=== PATIENT | female | born 1930 | race Hispanic/Latino ===

== ENCOUNTER 2017-05-28 07:02 | Day surgery (SDC) | payer MEDICARE ==
[2017-05-24 08:36] VITALS: BMI 36.5
[2017-05-28] MEDS ORDERED: Phenylephrine 10 mg/ml Inj ONE (07:30)
[2017-05-28] MEDS ORDERED: Nitroglycerin 50mg in D5W 50 MG/250 ML BOTTLE IV ONE (07:31)
[2017-05-28] MEDS ORDERED: Verapamil 2 ML ONE (07:31)
[2017-05-28] MEDS ORDERED: Lidocaine 2% Inj (20ml) ONE (07:32)
[2017-05-28] MEDS ORDERED: Iodixanol 320 MG/ML 100 ML BOTTLE IV ONE (07:33)
[2017-05-28] MEDS ORDERED: Iodixanol 320 MG/ML 200 ML BOTTLE IV ONE (07:33)
[2017-05-28] MEDS ORDERED: Iohexol 350mgl/ml 50 ML ONE (07:33)
[2017-05-28 07:42] LABS: BASO # 0.02 K/mm3 (0.0-2.0); BASO % 0.2 % (0.0-3.0); EOS # 0.2 (0.0-0.7); EOS % 2.2 % (1.5-5.0); GRAN # 6.77 (1.4-6.5); GRAN % 68.7 % (50.0-68.0); HEMOGLOBIN 12.7 g/dL (12.0-16.0); LYMPH # 2.1 (1.2-3.4); LYMPH % 21.7 % (22.0-35.0); MEAN CORPUSCULAR HEMOGLOBIN 31.9 pg (25.0-35.0); MEAN CORPUSCULAR HGB CONC 33.2 g/dl (31.0-37.0); MEAN PLATELET VOLUME 11.1 fl (7.0-11.0); MONO # 0.7 (0.1-0.6); MONO % 7.2 % (1.0-6.0); RBC 3.98 10^6/uL (3.5-6.1); RED CELL DISTRIBUTION WIDTH 13.5 % (11.5-14.5); WHITE BLOOD COUNT 9.9 10^3/ul (4.5-11.0)
[2017-05-28 07:53] LABS: INR 1.05 (0.93-1.08); PARTIAL THROMBOPLASTIN TIME 25.3 Seconds (25.1-36.5); PROTHROMBIN TIME 12.1 SECONDS (9.4-12.5)
[2017-05-28] MEDS ORDERED: Midazolam 2 MG/2 ML VIAL ONE ×3 (07:59→09:32)
[2017-05-28] MEDS ORDERED: Adenosine 90 mg/30mL IV ONE (07:59)
[2017-05-28] MEDS ORDERED: Sodium Chloride 0.9% 1,000 ML IV SCH (10:30)
[2017-05-28 10:51] VITALS: TEMP 97.3
[2017-05-28 13:16] VITALS: RESP 20
[2017-05-28 15:46] VITALS: BP 128/72; PULSE 72; O2SAT 98
--- NOTE | 2017-05-28 16:01 | CARDCATH ---
PROCEDURE DATE: 05/28/2017 INDICATIONS: Ms. Chantel El is an 86 years old female with symptoms of worsening dyspnea on exertion. She was having intermittent episodes of atypical chest pain with history of CAD and stenting. She was therefore brought to the label rewinder for further evaluation and treatment. PROCEDURES PERFORMED: Left heart catheterization with selective left and right coronary angiogram via right femoral approach, 6-[place] right femoral arterial access, fractional flow reserve of left anterior descending artery physiologically nonsignificant at 0.82, Mynx closure device for hemostasis. ANGIOGRAPHIC FINDINGS: Left main large-sized vessel bifurcates into LAD and left circumflex coronary artery. LAD has a proximal 55% stenosis, gives off 2 small diagonal branches and distally tapers into a small-sized vessel. Left circumflex runs in the AV groove, gives off a large obtuse marginal branch, which has mild nonobstructive disease. The right coronary artery has a proximal 30% stenosis, mid RCA stent is patent. Right PDA and PLV arteries have mild nonobstructive disease. The left ventricular end-diastolic pressure was 19 mmHg. There was no gradient noted upon the aortic valve. There was no AI, no MR. Left ventricular ejection fraction estimated to be 60% to 65%. IMPRESSION: Fractional flow reserve of left anterior descending artery was 50% to 55%, proximal left anterior descending artery fractional flow reserve was done, which was physiologically nonsignificant 0.82. Mild nonobstructive coronary artery disease, normal left ventricular ejection fraction, mildly elevated end-diastolic pressure. RECOMMENDATIONS: Continue guideline-directed therapy for diastolic CHF, nonobstructive coronary artery disease. Thank you Dr. Emery for letting me participate in the care of your patient. Magdiel De Leon MD cc: Ildefonso Emery MD
--- NOTE | 2017-05-28 23:55 | CARD ---
APPROVED REPORT EKG Measurement Heart [id number] <Conclusion> Atrial fibrillation Abnormal ECG
== END 2017-05-28 15:35 | disposition home or self-care (01) ==
LOC: CATH 07:02
PROVIDERS: ATTEND Internal Medicine Interventional Cardiology
DX: I25.10 Atherosclerotic heart disease of native coronary artery without angina pectoris (principal); I25.2 Old myocardial infarction; I48.0 Paroxysmal atrial fibrillation; Z79.01 Long term (current) use of anticoagulants; I10 Essential (primary) hypertension; E78.5 Hyperlipidemia, unspecified
CPT/HCPCS: 36415; 80048; 80061; 85025; 85175; 85610; 85730; 86850; 86900; 93005; 93458; 93571; 99152; 99153; C1760; C1769 ×3; C1887 ×2; C1894; J0153; J1644 ×2; J2250; J3010; J7030; J7040; Q9966